=== PATIENT | male | born 1985 | race African-American/Black ===

== ENCOUNTER 2017-03-17 15:12 | Emergency (ER) | payer SELFPAY ==
[~2017-03-17] VITALS: Ht 170.2 cm; Wt 70.3 kg
[~2017-03-17 15:12] MED LIST: AMOX875T PO; BUTA1CAP29 PO; HYDR-971 PO; HYDR25SU18 RC; IBUP800T2 PO; NAPR500T8 PO; ONDA4TAB7 PO
[2017-03-17] MEDS ORDERED: IV NORMAL SALINE 1000ML BAG 1,000 ML IV SCH (17:08)
[2017-03-17 17:21] LABS: BASO # 0.1 x10^3/uL (0.0-0.2); BASO % 2 % (0-3); EOS % 8 % (0-3); HEMATOCRIT 42.1 % (39.0-53.0); HEMOGLOBIN 13.9 g/dL (13.0-17.5); LYMPH # 2.2 x10^3/uL (1.0-4.8); LYMPH % 45 % (24-48); MEAN CORPUSCULAR HEMOGLOBIN 31 pg (25-35); MEAN CORPUSCULAR HGB CONC 33 g/dL (31-37); MEAN CORPUSCULAR VOLUME 93 fL (79-100); MONO % 11 % (0-9); NEUT % 35 % (31-73); PLATELET COUNT 239 x10^3/uL (140-400); RED CELL DISTRIBUTION WIDTH 14.9 % (11.5-14.5); WHITE BLOOD COUNT 4.8 x10^3/uL (4.0-11.0)
[2017-03-17 17:25] LABS: CALCIUM 8.8 mg/dL (8.5-10.1); GFR 104.8; POTASSIUM 3.9 mmol/L (3.5-5.1)
--- NOTE | 2017-03-17 17:27 | EKG ---
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
[2017-03-17 17:42] VITALS: BP 113/73
--- NOTE | 2017-03-17 17:54 | PHYS DOC ---
Past Medical History Past Medical History: Depression, Migraines, Other Additional Past Medical Histor: abscess, HEMORRHOIDS Past Surgical History: Other Additional Past Surgical Histo: HERNIA REPAIR Additional Information: 0.5 PPD Alcohol Use: Sober Drug Use: None Adult General Chief Complaint Chief Complaint: WEAKNESS/GENERALIZED HPI HPI Patient is a 31 year old male who presents with fatigue. Patient reports for the past few days he has been having increasing fatigue, has been sleeping a lot , had body aches, and then started feeling dizzy today. No fever. No focal pain. He called into work today and was told that since he has missed multiple days he needed to see a doctor to get a work note. He has not taken anything for symptoms at home. Review of Systems Review of Systems Constitutional: Fatigue, increased sleep. Denies fever or chills Eyes: Denies change in visual acuity or eye pain HENT: Denies nasal congestion or sore throat Respiratory: Denies cough or shortness of breath Cardiovascular: Denies chest pain GI: Denies abdominal pain, nausea, vomiting, bloody stools or diarrhea : Denies dysuria or hematuria Musculoskeletal: General body aches Integument: Denies rash or skin lesions Neurologic: Dizzy. Denies headache, focal weakness or sensory changes Current Medications Current Medications Current Medications Medications (Trade) Dose Ordered Sig/Bebeto Start Time Stop Time Status Last Admin Dose Admin Sodium Chloride (Iv Sodium Chloride 0.9% 1000ml Bag) 1,000 ml @ 1,000 mls/hr Q1H 03/17/17 17:08 03/17/17 18:07 DC 03/17/17 17:14 1,000 MLS/HR Allergies Allergies Allergies Coded Allergies Type Severity Reaction Last Updated Verified No Known Medication Allergies Allergy Unknown 10/13/15 Yes Physical Exam Physical Exam Constitutional: Well developed, well nourished, no acute distress, non-toxic appearance HENT: Normocephalic, atraumatic, bilateral external ears normal Eyes: PERRL, EOMI, conjunctiva normal, no discharge Neck: Normal range of motion, no stridor Cardiovascular: Heart rate normal, regular rhythm, no murmur Lungs & Thorax: Bilateral breath sounds clear to auscultation Abdomen: Bowel sounds normal, soft, non-distended, no TTP Skin: Warm, dry, no erythema, no rash Extremities: No obvious deformity, no edema Neurologic: Alert and oriented X 3, GCS 15, strength and sensation to light touch intact and symmetrical throughout, no dystaxia noted Current Patient Data Vital Signs Vital Signs Date Time Temp Pulse Resp B/P Pulse Ox O2 Delivery O2 Flow Rate FiO2 03/17/17 17:42 76 21 113/73 100 Room Air 03/17/17 16:44 98.2 98.2 Lab Values Laboratory Tests Test 03/17/17 16:53 White Blood Count 4.8x10^3/uL (4.0-11.0) Red Blood Count 4.50x10^6/uL (4.30-5.70) Hemoglobin 13.9g/dL (13.0-17.5) Hematocrit 42.1% (39.0-53.0) Mean Corpuscular Volume 93fL (79-100) Mean Corpuscular Hemoglobin 31pg (25-35) Mean Corpuscular Hemoglobin Concent 33g/dL (31-37) Red Cell Distribution Width 14.9% (11.5-14.5) H Platelet Count 239x10^3/uL (140-400) Neutrophils (%) (Auto) 35% (31-73) Lymphocytes (%) (Auto) 45% (24-48) Monocytes (%) (Auto) 11% (0-9) H Eosinophils (%) (Auto) 8% (0-3) H Basophils (%) (Auto) 2% (0-3) Neutrophils # (Auto) 1.7x10^3uL (1.8-7.7) L Lymphocytes # (Auto) 2.2x10^3/uL (1.0-4.8) Monocytes # (Auto) 0.5x10^3/uL (0.0-1.1) Eosinophils # (Auto) 0.4x10^3/uL (0.0-0.7) Basophils # (Auto) 0.1x10^3/uL (0.0-0.2) Sodium Level 143mmol/L (136-145) Potassium Level 3.9mmol/L (3.5-5.1) Chloride Level 107mmol/L (98-107) Carbon Dioxide Level 27mmol/L (21-32) Anion Gap 9 (6-14) Blood Urea Nitrogen 13mg/dL (8-26) Creatinine 1.0mg/dL (0.7-1.3) Estimated GFR (Cockcroft-Gault) 104.8 Glucose Level 66mg/dL (70-99) L Calcium Level 8.8mg/dL (8.5-10.1) Thyroid Stimulating Hormone (TSH) 0.318uIU/mL (0.358-3.74) L Laboratory Tests 03/17/17 16:53 Laboratory Tests 03/17/17 16:53 EKG EKG EKG (my read): sinus rhythm, rate 70, normal axis, intervals wnl, TWI lead III, nonspecific ST changes, similar morphology to prior 04/27/14 Radiology/Procedures Radiology/Procedures CXR (my read): No acute abnormality Course & Med Decision Making Course & Med Decision Making Pertinent Labs and Imaging studies reviewed. (See chart for details) Patient is 31 year old male who presents with fatigue. Possible viral illness given c/o body aches. Will check labs, EKG, CXR to evaluate. IVF bolus ordered. Labs notable for glucose 66, minimally low TSH. Juice provided to patient for mild hypoglycemia; as he does not taken any diabetic medication I have little concern about this. TSH slightly low, do not believe this is related to patient' s current complaints. Discussed results with patient, who is feeling better at this time. I discussed the need for him to follow up with PCP for further evaluation. Discharged home with instructions for follow up, return precautions. Dragon Disclaimer Dragon Disclaimer This electronic medical record was generated, in whole or in part, using a voice recognition dictation system. Departure Departure Impression: Primary Impression: Fatigue Additional Impression: Dizziness Disposition: 01 HOME, SELF-CARE Condition: IMPROVED Referrals: NO PCP (PCP) Patient Instructions: Dizziness, Fatigue Additional Instructions: Thank you for allowing us to provide care today in the Emergency Department. Schedule a follow up appointment with a primary care doctor using the provided list. Return promptly to the Emergency Department if you develop any new or concerning symptoms. Problem Qualifiers HIMANSHU YAN MD Mar 17, 2017 17:54
--- NOTE | 2017-03-18 06:16 | EKG ---
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
--- NOTE | 2017-03-18 08:39 | RAD ---
Chest, 2 views, 03/17/2017: History: Chest pain, fatigue The heart size and pulmonary vascularity are normal. No pulmonary infiltrates are seen. There is no evidence of pleural fluid. IMPRESSION: No significant cardiopulmonary abnormality is detected.
== END 2017-03-17 18:08 | disposition home or self-care (01) ==
LOC: ER 15:12
DX: R53.83 Other fatigue (principal); R42 Dizziness and giddiness; F17.200 Nicotine dependence, unspecified, uncomplicated; F32.9 Major depressive disorder, single episode, unspecified
CPT/HCPCS: 36415; 71020; 80048; 84443; 85027; 93005; 99285; J7030

== ENCOUNTER 2020-10-04 18:41 | Emergency (ER) | payer SELFPAY ==
[~2020-10-04] VITALS: Ht 167.6 cm; Wt 70.1 kg
[~2020-10-04 18:41] MED LIST changes: +HYDR-3164 PO; -HYDR-971 PO; +IBUP800T19 PO; -IBUP800T2 PO
[2020-10-04 19:39] VITALS: BP 128/81
--- NOTE | 2020-10-04 20:51 | PHYS DOC ---
Past Medical History Past Medical History: Depression, Migraines, Other Additional Past Medical Histor: abscess, HEMORRHOIDS Past Surgical History: Other Additional Past Surgical Histo: HERNIA REPAIR Smoking Status: Current Every Day Smoker Alcohol Use: Sober Drug Use: None General Adult EDM: Chief Complaint: COUGH HPI: HPI: Patient is a 35 year old male who presented to ER for 3-day history of nonproductive cough body ache congestion flulike symptom. Patient said he works for [employer] and many people over the tested positive for COVID-19. Patient said he had a negative test for COVID-19 4 weeks ago after his mom was tested positive for COVID-19. Patient refused to have COVID-19 test again. Patient denies abdominal pain, no chest pain, no trouble breathing, no headache. Review of Systems: Review of Systems: Constitutional: Denies fever or chills. [] Eyes: Denies change in visual acuity. [] HENT: Positive for nasal congestion, no sore throat.] Respiratory: Positive for cough, no trouble breathing. Cardiovascular: Denies chest pain or edema. [] GI: Denies abdominal pain, nausea, vomiting, bloody stools or diarrhea. [] : Denies dysuria. [] Musculoskeletal: Positive for body aches or joint pain. No back pain. Integument: Denies rash. [] Neurologic: Denies headache, focal weakness or sensory changes. [] Endocrine: Denies polyuria or polydipsia. [] Lymphatic: Denies swollen glands. [] Psychiatric: Denies depression or anxiety. [] Heart Score: Risk Factors: Risk Factors: DM, Current or recent (<one month) smoker, HTN, HLP, family history of CAD, obesity. Risk Scores: Score 0 - 3: 2.5% MACE over next 6 weeks - Discharge Home Score 4 - 6: 20.3% MACE over next 6 weeks - Admit for Clinical Observation Score 7 - 10: 72.7% MACE over next 6 weeks - Early Invasive Strategies Allergies: Allergies: Allergies Coded Allergies Type Severity Reaction Last Updated Verified No Known Medication Allergies Allergy Unknown 10/13/15 Yes Physical Exam: PE: Constitutional: Well developed, well nourished, no acute distress, non-toxic appearance. [] HENT: Normocephalic, atraumatic, bilateral external ears normal, oropharynx moist, no oral exudates, nose normal. [] Eyes: PERRLA, EOMI, conjunctiva normal, no discharge. [] Neck: Normal range of motion, no tenderness, supple, no stridor. [] Cardiovascular:Heart rate regular rhythm, no murmur [] Lungs & Thorax: Bilateral breath sounds clear to auscultation [] Abdomen: Bowel sounds normal, soft, no tenderness, no masses, no pulsatile masses. [] Skin: Warm, dry, no erythema, no rash. [] Back: No tenderness, no CVA tenderness. [] Extremities: No tenderness, no cyanosis, no clubbing, ROM intact, no edema. [] Neurologic: Alert and oriented X 3, normal motor function, normal sensory function, no focal deficits noted. [] Psychologic: Affect normal, judgement normal, mood normal. [] EKG: EKG: [] Radiology/Procedures: Radiology/Procedures: [][facility] [address] [place], [place] [id number] IMAGING REPORT Signed PATIENT: LAUREEN FINE DACCOUNT: [id number] : 1985 LOCATION: ER AGE: 35 SEX: M EXAM STATUS: DEP ER ORD. PHYSICIAN: LOPEZ ADAMS DO REASON: cough, fever, chill PROCEDURE: CHEST AP ONLY EXAM: CHEST AP ONLY INDICATION: Reason: cough, fever, chill / Spl. Instructions: / History: . TECHNIQUE: Single view COMPARISON: 03/17/2017 chest x-ray FINDINGS: The heart size is normal. The great vessels appear unremarkable. There is no hilar or mediastinal mass. The lungs are clear. There is no pleural effusion or pneumothorax. There are no significant osseous abnormalities. IMPRESSION: No active cardiopulmonary disease. Electronically signed by: Davy Bull MD (10/04/2020 9:21 PM) [facility] DICTATED and SIGNED BY: DAVY BULL MD DATE: 10/04/202120 Course & Med Decision Making: Course & Med Decision Making Pertinent Labs and Imaging studies reviewed. (See chart for details) [] Dragon Disclaimer: Dragon Disclaimer: This electronic medical record was generated, in whole or in part, using a voice recognition dictation system. Departure Departure Impression: Primary Impression: Upper respiratory infection Disposition: 01 DC HOME SELF CARE/HOMELESS Condition: STABLE Referrals: NO PCP (PCP) PLEASE FOLLOW UP WITH YOUR DOCTOR NEEDED Patient Instructions: Upper Respiratory Infection, Adult Additional Instructions: Thank you for visiting our Emergency Department. We appreciate you trusting us with your care. If any additional problems come up don't hesitate to return to visit us. Please follow up with your primary care provider so they can plan additional care if needed and know about the problem that you had. If symptoms worsen come back to the Emergency Department. Any concerning symptoms that start such as chest pain, shortness of air, weakness or numbness on one side of the body, running high fevers or any other concerning symptoms return to the ER. LOEPZ ADAMS DO Oct 04, 2020 20:51
--- NOTE | 2020-10-04 21:24 | RAD ---
EXAM: CHEST AP ONLY INDICATION: Reason: cough, fever, chill / Spl. Instructions: / History: . TECHNIQUE: Single view COMPARISON: 03/17/2017 chest x-ray FINDINGS: The heart size is normal. The great vessels appear unremarkable. There is no hilar or mediastinal mass. The lungs are clear. There is no pleural effusion or pneumothorax. There are no significant osseous abnormalities. IMPRESSION: No active cardiopulmonary disease. Electronically signed by: Orestes Bull MD (10/04/2020 9:21 PM) [facility]
== END 2020-10-04 21:11 | disposition home or self-care (01) ==
LOC: ER 18:41
DX: J06.9 Acute upper respiratory infection, unspecified (principal); R05 Cough; R09.81 Nasal congestion; F32.9 Major depressive disorder, single episode, unspecified; G43.909 Migraine, unspecified, not intractable, without status migrainosus; F17.200 Nicotine dependence, unspecified, uncomplicated; Z98.890 Other specified postprocedural states
CPT/HCPCS: 71045; 99283

== ENCOUNTER 2020-12-12 20:22 | Emergency (ER) | payer BC ==
[~2020-12-12] VITALS: Ht 170.2 cm; Wt 72.0 kg
[2020-12-12 21:00] VITALS: BP 133/88
--- NOTE | 2020-12-12 21:16 | PHYS DOC ---
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 Patient denies any fever. Patient states he was at work today and was asked him to leave because of his symptoms. He appears intoxicated. He admits to using cigarettes and smoking other things and states he will not name them because he does not want to incriminate himself. He is also complaining of 10 out of 10 chronic left foot pain and would like a referral to an orthopedic doctor. Denies any injuries. He is an employee of [employer] and would like an excuse for work Review of Systems: Review of Systems: Constitutional: Denies fever or chills. [] Eyes: report itchy eyes. Denies change in visual acuity. [] HENT: Reports nasal congestion denies sore throat. [] Respiratory: Denies cough or shortness of breath. [] Cardiovascular: Denies chest pain or edema. [] GI: Denies abdominal pain, nausea, vomiting, bloody stools or diarrhea. [] : Denies dysuria. [] Musculoskeletal: Denies back pain or joint pain. [] Integument: Denies rash. [] Neurologic: Reports headache, denies focal weakness or sensory changes. [] Psychiatric: Denies depression or anxiety. [] Heart Score: Risk Factors: Risk Factors: DM, Current or recent (<one month) smoker, HTN, HLP, family history of CAD, obesity. Risk Scores: Score 0 - 3: 2.5% MACE over next 6 weeks - Discharge Home Score 4 - 6: 20.3% MACE over next 6 weeks - Admit for Clinical Observation Score 7 - 10: 72.7% MACE over next 6 weeks - Early Invasive Strategies Allergies: Allergies: Allergies Coded Allergies Type Severity Reaction Last Updated Verified No Known Medication Allergies Allergy Unknown 10/13/15 Yes Physical Exam: PE: Constitutional: Well developed, well nourished, no acute distress, non-toxic appearance. [] HENT: Normocephalic, atraumatic, bilateral external ears normal, oropharynx m oist, no oral exudates, nose normal. [] Eyes: PERRLA, EOMI, conjunctiva normal, no discharge. [] Neck: Normal range of motion, no tenderness, supple, no stridor. [] Cardiovascular:Heart rate regular rhythm, no murmur [] Lungs & Thorax: Bilateral breath sounds clear to auscultation [] Abdomen: Bowel sounds normal, soft, no tenderness, no masses, no pulsatile masses. [] Skin: Warm, dry, no erythema, no rash. [] Back: No tenderness, no CVA tenderness. [] Extremities: No tenderness, no cyanosis, no clubbing, ROM intact, no edema. [] Neurologic: Alert and oriented X 3, normal motor function, normal sensory function, no focal deficits noted. Cranial nerves II through XII intact Psychologic: Appears intoxicated Current Patient Data: Vital Signs: Vital Signs Date Time Temp Pulse Resp B/P (MAP) Pulse Ox O2 Delivery O2 Flow Rate FiO2 12/12/20 21:00 98.8 111 16 133/88 (103) 98 Room Air 98.8 EKG: EKG: [] Radiology/Procedures: Radiology/Procedures: [] Course & Med Decision Making: Course & Med Decision Making Pertinent Labs and Imaging studies reviewed. (See chart for details) This is a 35-year-old male patient well-known to this ED presenting today complaining of a headache, nasal congestion, and bilateral eye drainage, symptoms for 3 days. History of migraine headaches as well as seasonal allergies. Was discharged with [id number] remedies for his symptoms. He was also complaining of chronic left foot pain, will give him a referral to orthopedic doctor. Work note provided to him Dhruv Disclaimer: Dhruv Disclaimer: This electronic medical record was generated, in whole or in part, using a voice recognition dictation system. Departure Departure Impression: Primary Impression: Seasonal allergies Additional Impressions: Migraine headache Qualified Codes: G43.909 - Migraine, unspecified, not intractable, without status migrainosus Chronic toe pain, left foot Disposition: 01 DC HOME SELF CARE/HOMELESS Condition: STABLE Referrals: NO PCP (PCP) BONG SMITH MD follow up in one 2 weeks Patient Instructions: Allergies, Generic, Migraine Headache Additional Instructions: You were evaluated in the emergency room. Please take the prescribed medicatio ns as ordered. Follow-up with your doctor in 1 week, follow-up with orthopedic doctor in 2 weeks. Scripts Cetirizine Hcl (ZYRTEC) 10 Mg Tablet 1 TAB PO DAILY, #30 TAB 2 Refills Prov: MILADIS CHAUHAN APRN 12/12/20 Ketotifen Fumarate (ZADITOR) 5 Ml Drops 1 DROP EACHEYE BID, #5 ML 1 Refill Prov: MILADIS CHAUHAN APRN 12/12/20 MILADIS CHAUHAN APRN Dec 12, 2020 21:16
[2020-12-12] MEDS ORDERED: KETO5DRO4 EACHEYE (21:21)
[2020-12-12] MEDS ORDERED: CETI10TA74 PO (21:21)
== END 2020-12-12 21:29 | disposition home or self-care (01) ==
LOC: ER 20:22
DX: G43.909 Migraine, unspecified, not intractable, without status migrainosus (principal); G89.29 Other chronic pain; M79.675 Pain in left toe(s); F17.200 Nicotine dependence, unspecified, uncomplicated
CPT/HCPCS: 99282

== ENCOUNTER 2020-12-25 20:17 | Emergency (ER) | payer BC ==
[~2020-12-25] VITALS: Ht 170.2 cm; Wt 73.0 kg
[~2020-12-25 20:17] MED LIST changes: +CETI10TA74 PO; +KETO5DRO4 EACHEYE
[2020-12-25 20:20] VITALS: BP 133/88
[2020-12-25] MEDS ORDERED: DIPH-121 PO (20:32)
[2020-12-25] MEDS ORDERED: PRED20TA PO (20:32)
--- NOTE | 2020-12-25 20:32 | PHYS DOC ---
Past Medical History Past Medical History: Depression, Migraines, Other Additional Past Medical Histor: abscess, HEMORRHOIDS Past Surgical History: Other Additional Past Surgical Histo: HERNIA REPAIR Smoking Status: Current Every Day Smoker Alcohol Use: Sober Drug Use: None Adult General Chief Complaint Chief Complaint: INSECT BITE [facility] HPI Patient is a 35 year old male with no significant past medical history presenting emergency department complaining of new onset rash and itchiness. Patient states that few days ago was regular and since that time is noted where things were insects in his room in his bed. Has had some itching on her head is scalp and on the left torso. Also notes some itching and irritation of the right hand. Denies any fever, chills, dizziness or lightheadedness. Review of Systems Review of Systems Constitutional: Denies fever or chills [] Eyes: Denies change in visual acuity, redness, or eye pain [] HENT: Denies nasal congestion or sore throat [] Respiratory: Denies cough or shortness of breath [] Cardiovascular: No additional information not addressed in HPI [] GI: Denies abdominal pain, nausea, vomiting, bloody stools or diarrhea [] : Denies dysuria or hematuria [] Musculoskeletal: Denies back pain or joint pain [] Integument: Denies rash or skin lesions [] Neurologic: Denies headache, focal weakness or sensory changes [] Endocrine: Denies polyuria or polydipsia [] All other systems were reviewed and found to be within normal limits, except as documented in this note. Allergies Allergies Allergies Coded Allergies Type Severity Reaction Last Updated Verified No Known Medication Allergies Allergy Unknown 10/13/15 Yes Physical Exam Physical Exam Constitutional: Well developed, well nourished, no acute distress, non-toxic appearance. [] HENT: Normocephalic, atraumatic, bilateral external ears normal, oropharynx moist, no oral exudates, nose normal. [] Eyes: PERRLA, EOMI, conjunctiva normal, no discharge. [] Neck: Normal range of motion, no tenderness, supple, no stridor. [] Cardiovascular:Heart rate regular rhythm, no murmur [] Lungs & Thorax: Bilateral breath sounds clear to auscultation [] Abdomen: Bowel sounds normal, soft, no tenderness, no masses, no pulsatile masses. [] Skin: Warm, dry, no erythema, no rash. moderate erythema to forehead. L anterior abdomen and trunk iwth mild scaling rash Back: No tenderness, no CVA tenderness. [] Extremities: No tenderness, no cyanosis, no clubbing, ROM intact, no edema. [] Neurologic: Alert and oriented X 3, normal motor function, normal sensory function, no focal deficits noted. [] Psychologic: Affect normal, judgement normal, mood normal. [] EKG EKG [] Radiology/Procedures Radiology/Procedures [] Course & Med Decision Making Course & Med Decision Making Pertinent Labs and Imaging studies reviewed. (See chart for details) 35 male with a mild atopic dermatitis that appears to be on the left anterior torso and on the forehead scalp. No evidence of bug bites at this time. We will treat the patient with prednisone and Benadryl and discharged Dragon Disclaimer Dragon Disclaimer This electronic medical record was generated, in whole or in part, using a voice recognition dictation system. Departure Departure Impression: Primary Impression: Atopic dermatitis Disposition: 01 DC HOME SELF CARE/HOMELESS Condition: GOOD Referrals: NO PCP (PCP) Patient Instructions: Contact Dermatitis Additional Instructions: EMERGENCY DEPARTMENT GENERAL DISCHARGE INSTRUCTIONS Thank you for coming to [facility] Emergency Department (ED) today and trusting us with you care. We trust that you had a positive experience in our Emergency Department. If you wish to speak to the department management, you may call the Director at [phone]. YOUR FOLLOW UP INSTRUCTIONS ARE FOLLOWS: 1. Do you have a private Doctor? If you do not have a private doctor, please ask for a resource list of physicians or clinics that may be able to assist you with follow up care. 2. The Emergency Physicain has interpreted your x-rays. The X-Ray specialist will also review them. If there is a change in the findings, you will be notified in 48 hours when at all possible. 3. A lab test or culture has been done, your results will be reviewed and you will be notified if you need a change in treatment. ADDITIONAL INSTRUCTIONS AND INFORMATION: 1. Your care today has been supervised by a physician who is specially trained in emergency care. Many problems require more than one evaluation for a complete diagnosis and treatment. We recommend that you schedule your follow up appointment as recommended to ensure complete treatment of you illness or injury. If you are unable to obtain follow up care and continue to have a problem, or if your condition worsens, we recommend that you return to the ED. 2. We are not able to safely determine your condition over the phone nor are we able to give sound medical advice over the phone. For these safety reasons, if you call for medical advice we will ask you to come to the ED for further evaluation. 3. If you have any questions regarding these discharge instructions please call the ED at [phone]. SAFETY INFORMATION: In the interest of safety, wellness, and injury prevention; we encourage you to wear your sealbelt, if you smoke; quite smoking, and we encourage family to use a protective helmet for bicycling and other sporting events that present an increased risk for head injury. IF YOUR SYMPTOMS WORSEN OR NEW SYMPTOMS DEVELOP, OR YOU HAVE CONCERNS ABOUT YOUR CONDITION; OR IF YOUR CONDITION WORSENS WHILE YOU ARE WAITING FOR YOUR FOLLOW UP APPOINTMENT; EITHER CONTACT YOUR PRIMARY CARE DOCTOR, THE PHYSICIAN WHOSE NAME AND NUMBER YOU WERE GIVEN, OR RETURN TO THE ED IMMEDIATELY. Scripts Prednisone (PREDNISONE) 20 Mg Tablet 1 TAB PO DAILY, #5 TAB Prov: NEEUR BERNAL MD 12/25/20 Diphenhydramine Hcl (BENADRYL ALLERGY) 12.5 Mg/5 Ml Liquid 2.5 ML PO Q6HRS for allergy symptoms for 12 Days, #120 ML 0 Refills Prov: NEERU BERNAL MD 12/25/20 NEERU BERNAL MD Dec 25, 2020 20:32
[2020-12-25] MEDS ORDERED: DICL100G54 TP (20:59)
[2020-12-25] MEDS ORDERED: predniSONE 20 MG TABLET PO ONE (21:00)
[2020-12-25] MEDS ORDERED: HYDROCORTISONE 1% LOTION BOTTLE. TP SCH (21:00)
== END 2020-12-25 21:00 | disposition home or self-care (01) ==
LOC: ER 20:17
DX: L20.9 Atopic dermatitis, unspecified (principal); R21 Rash and other nonspecific skin eruption; F32.9 Major depressive disorder, single episode, unspecified; G43.909 Migraine, unspecified, not intractable, without status migrainosus; F17.200 Nicotine dependence, unspecified, uncomplicated; Z98.890 Other specified postprocedural states
CPT/HCPCS: 99283

== ENCOUNTER 2021-03-20 21:14 | Emergency (ER) | payer BC ==
[~2021-03-20] VITALS: Ht 170.2 cm; Wt 72.0 kg
[~2021-03-20 21:14] MED LIST changes: +DICL100G54 TP; +DIPH-121 PO; +PRED20TA PO
[2021-03-20 21:57] VITALS: BP 131/76
--- NOTE | 2021-03-20 22:24 | PHYS DOC ---
Past Medical History Past Medical History: Depression, Migraines, Other Additional Past Medical Histor: abscess, HEMORRHOIDS Past Surgical History: Other Additional Past Surgical Histo: HERNIA REPAIR Smoking Status: Current Every Day Smoker Alcohol Use: Sober Drug Use: None Adult General Chief Complaint Chief Complaint: FATIGUE HPI HPI Patient is a 35 year old male presenting emergency department requesting a Covid test for exposure. Patient states that coworker was tested positive yesterday and she was working with her yesterday. Sent home from work today due to possible Covid exposure. Denies symptoms at this time Review of Systems Review of Systems Constitutional: Denies fever or chills [] Eyes: Denies change in visual acuity, redness, or eye pain [] HENT: Denies nasal congestion or sore throat [] Respiratory: Denies cough or shortness of breath [] Cardiovascular: No additional information not addressed in HPI [] GI: Denies abdominal pain, nausea, vomiting, bloody stools or diarrhea [] : Denies dysuria or hematuria [] Musculoskeletal: Denies back pain or joint pain [] Integument: Denies rash or skin lesions [] Neurologic: Denies headache, focal weakness or sensory changes [] Endocrine: Denies polyuria or polydipsia [] All other systems were reviewed and found to be within normal limits, except as documented in this note. Allergies Allergies Allergies Coded Allergies Type Severity Reaction Last Updated Verified No Known Drug Allergies 12/25/20 No Physical Exam Physical Exam Constitutional: Well developed, well nourished, no acute distress, non-toxic appearance. [] HENT: Normocephalic, atraumatic, bilateral external ears normal, oropharynx moist, no oral exudates, nose normal. [] Eyes: PERRLA, EOMI, conjunctiva normal, no discharge. [] Neck: Normal range of motion, no tenderness, supple, no stridor. [] Cardiovascular:Heart rate regular rhythm, no murmur [] Lungs & Thorax: Bilateral breath sounds clear to auscultation [] Abdomen: Bowel sounds normal, soft, no tenderness, no masses, no pulsatile masses. [] Skin: Warm, dry, no erythema, no rash. [] Back: No tenderness, no CVA tenderness. [] Extremities: No tenderness, no cyanosis, no clubbing, ROM intact, no edema. [] Neurologic: Alert and oriented X 3, normal motor function, normal sensory function, no focal deficits noted. [] Psychologic: Affect normal, judgement normal, mood normal. [] Current Patient Data Vital Signs Vital Signs Date Time Temp Pulse Resp B/P (MAP) Pulse Ox O2 Delivery O2 Flow Rate FiO2 03/20/21 21:57 98.3 84 16 131/76 (94) 98 Room Air 98.3 EKG EKG [] Radiology/Procedures Radiology/Procedures [] Course & Med Decision Making Course & Med Decision Making Pertinent Labs and Imaging studies reviewed. (See chart for details) 35M presented emergency department for Covid testing after exposure. Will obtain Covid testing and discharged home. Dragon Disclaimer [employer] Disclaimer This electronic medical record was generated, in whole or in part, using a voice recognition dictation system. Departure Departure Impression: Primary Impression: Viral syndrome Disposition: HOME / SELF CARE / HOMELESS Condition: GOOD Referrals: GIGI WISE MD Patient Instructions: Viral Syndrome Additional Instructions: EMERGENCY DEPARTMENT GENERAL DISCHARGE INSTRUCTIONS Thank you for coming to [facility] Emergency Department (ED) today and trusting us with you care. We trust that you had a positive experience in our Emergency Department. If you wish to speak to the department management, you may call the Director at [phone]. YOUR FOLLOW UP INSTRUCTIONS ARE FOLLOWS: 1. Do you have a private Doctor? If you do not have a private doctor, please ask for a resource list of physicians or clinics that may be able to assist you with follow up care. 2. The Emergency Physicain has interpreted your x-rays. The X-Ray specialist will also review them. If there is a change in the findings, you will be notified in 48 hours when at all possible. 3. A lab test or culture has been done, your results will be reviewed and you will be notified if you need a change in treatment. ADDITIONAL INSTRUCTIONS AND INFORMATION: 1. Your care today has been supervised by a physician who is specially trained in emergency care. Many problems require more than one evaluation for a complete diagnosis and treatment. We recommend that you schedule your follow up appointment as recommended to ensure complete treatment of you illness or injury. If you are unable to obtain follow up care and continue to have a problem, or if your condition worsens, we recommend that you return to the ED. 2. We are not able to safely determine your condition over the phone nor are we able to give sound medical advice over the phone. For these safety reasons, if you call for medical advice we will ask you to come to the ED for further evaluation. 3. If you have any questions regarding these discharge instructions please call the ED at [phone]. SAFETY INFORMATION: In the interest of safety, wellness, and injury prevention; we encourage you to wear your sealbelt, if you smoke; quite smoking, and we encourage family to use a protective helmet for bicycling and other sporting events that present an increased risk for head injury. IF YOUR SYMPTOMS WORSEN OR NEW SYMPTOMS DEVELOP, OR YOU HAVE CONCERNS ABOUT YOUR CONDITION; OR IF YOUR CONDITION WORSENS WHILE YOU ARE WAITING FOR YOUR FOLLOW UP APPOINTMENT; EITHER CONTACT YOUR PRIMARY CARE DOCTOR, THE PHYSICIAN WHOSE NAME AND NUMBER YOU WERE GIVEN, OR RETURN TO THE ED IMMEDIATELY. NEERU BERNAL MD Mar 20, 2021 22:24
== END 2021-03-20 22:56 | disposition home or self-care (01) ==
LOC: ER 21:14
DX: B34.9 Viral infection, unspecified (principal); Z20.822 Contact with and (suspected) exposure to COVID-19; F32.9 Major depressive disorder, single episode, unspecified; G43.909 Migraine, unspecified, not intractable, without status migrainosus; F17.200 Nicotine dependence, unspecified, uncomplicated; Z98.890 Other specified postprocedural states
CPT/HCPCS: 99283; U0003

== ENCOUNTER 2021-04-08 19:01 | Emergency (ER) | payer BC ==
[~2021-04-08] VITALS: Ht 170.2 cm; Wt 71.4 kg
[2021-04-08 19:13] VITALS: BP 138/103
[2021-04-08] MEDS ORDERED: PRED20TA PO (19:33)
[2021-04-08] MEDS ORDERED: DIPH25CA58 PO (19:33)
[2021-04-08] MEDS ORDERED: FAMO-63 PO (19:33)
--- NOTE | 2021-04-08 19:34 | PHYS DOC ---
Past Medical History Past Medical History: Depression, Migraines, Other Additional Past Medical Histor: abscess, HEMORRHOIDS Past Surgical History: Other Additional Past Surgical Histo: HERNIA REPAIR Smoking Status: Current Every Day Smoker Alcohol Use: Heavy Additional Information: REPORTS 'TWO SHOTS A DAY AT LEAST' Drug Use: None Social History Narrative: DENIES BUT IS HESITANT TO ANSWER General Adult EDM: Chief Complaint: ITCHING HPI: HPI: 35-year-old male with past medical history of eczema presents with increased pruritic rash for the past several days. Patient reports he cleaned his house and changed bedsheets thinking it might be secondary to insect bites. Patient has also been using [id number] eczema remedies. Patient reports despite all measures patient does continue with pruritic rash. Patient reports worse when he is sweating. Patient reports this typically happens while he is at work at [employer]. Patient requesting help to prevent rash from reoccurring. Review of Systems: Review of Systems: Constitutional: Denies fever or chills Eyes: Denies redness or eye pain HENT: Denies nasal congestion or sore throat Respiratory: Denies cough or shortness of breath Cardiovascular: Denies chest pain or palpitations GI: Denies abdominal pain, nausea, or vomiting : Denies dysuria or hematuria Musculoskeletal: Denies back pain or joint pain Integument: Reports pruritic rash Neurologic: Denies headache, focal weakness or sensory changes Complete systems were reviewed and found to be within normal limits, except as documented in this note. Heart Score: C/O Chest Pain: N/A Current Medications: Current Medications Medications (Trade) Dose Ordered Sig/Bebeto Start Time Stop Time Status Last Admin Dose Admin Dexamethasone (Decadron) 10 mg 1X ONCE 04/08/21 19:30 04/08/21 19:31 UNV Diphenhydramine HCl (Benadryl) 25 mg 1X ONCE 04/08/21 19:30 04/08/21 19:31 UNV Famotidine (Pepcid) 20 mg 1X ONCE 04/08/21 19:30 04/08/21 19:31 UNV Allergies: Allergies: Allergies Coded Allergies Type Severity Reaction Last Updated Verified No Known Drug Allergies 12/25/20 No Physical Exam: PE: Constitutional: Well developed, well nourished, no acute distress, non-toxic appearance HENT: Normocephalic, atraumatic Eyes: Conjunctiva normal, no discharge Neck: Normal range of motion, supple Lungs & Thorax: No respiratory distress, equal chest rise and fall Skin: Warm, dry, no erythema, mild pruritic rash to bilateral arms and to neck which appears consistent to eczema Extremities: No tenderness, ROM intact, no edema Neurologic: Alert and oriented X 3, no focal deficits noted Psychologic: Affect anxious, judgment normal Current Patient Data: Vital Signs: Vital Signs Date Time Temp Pulse Resp B/P (MAP) Pulse Ox O2 Delivery O2 Flow Rate FiO2 04/08/21 19:13 98.4 116 16 138/103 (115) 100 Room Air 98.4 EKG: EKG: [] Radiology/Procedures: Radiology/Procedures: [] Course & Med Decision Making: Course & Med Decision Making Patient presents with HPI and physical exam consistent for pruritic rash likely patient's exacerbation of eczema. Symptomatic treatment provided with oral steroid, Benadryl, and Pepcid. Patient stable for discharge with outpatient follow-up with PCP. Discussed findings and plan with patient, who acknowledges understanding and agreement. Dhruv Disclaimer: Dh[employer]v Disclaimer: This electronic medical record was generated, in whole or in part, using a voice recognition dictation system. Departure Departure Impression: Primary Impression: Pruritic rash Additional Impression: Eczema Qualified Codes: L30.9 - Dermatitis, unspecified Disposition: HOME / SELF CARE / HOMELESS Condition: STABLE Referrals: NO PCP (PCP) Patient Instructions: Eczema, Rash, Tode-py-Tkas Scripts Famotidine (PEPCID) 20 Mg Tablet 20 MG PO BID for 5 Days, #10 TAB Prov: KIT SARABIA DO 04/08/21 Diphenhydramine Hcl (BENADRYL) 25 Mg Capsule 1 CAP PO Q6HRS PRN for ITCHING, #30 CAP 0 Refills Prov: KIT SARABIA DO 04/08/21 Prednisone (PREDNISONE) 20 Mg Tablet 2 TAB PO DAILY, #8 TAB Start this prescription tomorrow, Saturday04/09/21 Prov: KIT SARABIA DO 04/08/21 KIT SARABIA DO April 08, 2021 19:34
[2021-04-08] MEDS ORDERED: FAMOTIDINE 20 MG TABLET. PO ONE (19:45)
[2021-04-08] MEDS ORDERED: diphenhydrAMINE HCL 25 MG CAPSULE PO ONE (19:45)
[2021-04-08] MEDS ORDERED: DEXAMETHASONE 4 MG TABLET PO ONE (19:45)
== END 2021-04-08 19:46 | disposition home or self-care (01) ==
LOC: ER 19:01
DX: L29.9 Pruritus, unspecified (principal); R21 Rash and other nonspecific skin eruption; L30.9 Dermatitis, unspecified; G43.909 Migraine, unspecified, not intractable, without status migrainosus; F32.9 Major depressive disorder, single episode, unspecified; F17.200 Nicotine dependence, unspecified, uncomplicated; F10.20 Alcohol dependence, uncomplicated; Y90.9 Presence of alcohol in blood, level not specified
CPT/HCPCS: 99284; Q0163

== ENCOUNTER 2021-05-09 07:40 | Emergency (ER) | payer BC ==
[~2021-05-09] VITALS: Ht 170.2 cm; Wt 70.0 kg
[~2021-05-09 07:40] MED LIST changes: +DIPH25CA58 PO; +FAMO-63 PO
[2021-05-09 08:00] VITALS: BP 136/99
[2021-05-09] MEDS ORDERED: diphenhydrAMINE 50 MG/ML VIAL IM ONE (08:15)
[2021-05-09] MEDS ORDERED: CETI10TA16 PO (08:43)
[2021-05-09] MEDS ORDERED: TRIA15OI9 TP (08:43)
--- NOTE | 2021-05-09 08:44 | ED.ADGEN ---
Past Medical History Past Medical History: Depression, Migraines, Other Additional Past Medical Histor: abscess, HEMORRHOIDS Past Surgical History: Other Additional Past Surgical Histo: HERNIA REPAIR Smoking Status: Current Every Day Smoker Alcohol Use: Heavy Drug Use: None General Adult EDM: Chief Complaint: SKIN RASH/ABSCESS HPI: HPI: Patient is a 35 year old male coming in for pruritic rash on face and forearms. States it started around his cheeks just below his eyes 2 days ago, yesterday started on his volar forearms. Patient denies any other complaints or known exposure. His not had any changes in detergent or soaps. 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 Has had multiple episodes in the past. Took Benadryl a few days ago but does not take any antihistamines regularly. Patient states he has a history of seasonal allergies. Review of Systems: Review of Systems: All other systems within normal limits except for as noted in the HPI Current Medications: Current Medications Medications (Trade) Dose Ordered Sig/Bebeto Start Time Stop Time Status Last Admin Dose Admin Diphenhydramine HCl (Benadryl) 50 mg 1X ONCE 05/09/21 08:15 05/09/21 08:16 DC 05/09/21 08:32 50 MG Allergies: Allergies: Allergies Coded Allergies Type Severity Reaction Last Updated Verified No Known Drug Allergies 12/25/20 No Physical Exam: PE: Constitutional: Well developed, well nourished, no acute distress, non-toxic appearance. [] HENT: Normocephalic, atraumatic, bilateral external ears normal, nose normal. [] Eyes: PERRLA, conjunctiva normal, no discharge. [] Neck: No rigidity, supple, no stridor. [] Cardiovascular: Regular rate and rhythm, brisk cap refill [] Lungs & Thorax: Non labored symmetric respirations, no tachypnea or respiratory distress [] Abdomen: Soft, nondistended. Skin: Warm, dry, no erythema, no rash. Raised papules on inner forearm and on cheeks [] Back: Unremarkable Extremities: No deformities, range of motion grossly intact, no lower extremity edema [] Neurologic: Alert and oriented X 3, no focal deficits noted. [] Psychologic: Affect normal, judgement normal, mood normal. [] EKG: EKG: [] Heart Score: C/O Chest Pain: No Risk Factors: Risk Factors: DM, Current or recent (<one month) smoker, HTN, HLP, family hi story of CAD, obesity. Risk Scores: Score 0 - 3: 2.5% MACE over next 6 weeks - Discharge Home Score 4 - 6: 20.3% MACE over next 6 weeks - Admit for Clinical Observation Score 7 - 10: 72.7% MACE over next 6 weeks - Early Invasive Strategies Radiology/Procedures: Radiology/Procedures: [] Course & Med Decision Making: Course & Med Decision Making Patient appears to have contact dermatitis. Patient states that he is getting his second dose of Covid vaccine later today so we will treat with topical steroids instead of p.o. Dragon Disclaimer: [employer] Disclaimer: This electronic medical record was generated, in whole or in part, using a voice recognition dictation system. Departure Departure Impression: Primary Impression: Dermatitis Disposition: HOME / SELF CARE / HOMELESS Condition: STABLE Referrals: NO PCP (PCP) Patient Instructions: Contact Dermatitis Scripts Triamcinolone Acetonide (TRIAMCINOLONE ACETONIDE 0.5% OINT) 15 Gm Oint...g. 1 BOLA TP BID for steroid for 10 Days, #60 GM Prov: VICTORINO VIRAMONTES MD 05/09/21 Cetirizine Hcl (CETIRIZINE HCL) 10 Mg Tablet 1 TAB PO DAILY for antihistamine, #30 TAB 3 Refills Prov: VICTORINO VIRAMONTES MD 05/09/21 VICTORINO VIRAMONTES MD May 09, 2021 08:44
== END 2021-05-09 08:56 | disposition home or self-care (01) ==
LOC: ER 07:40
DX: L30.9 Dermatitis, unspecified (principal); G43.909 Migraine, unspecified, not intractable, without status migrainosus; F17.200 Nicotine dependence, unspecified, uncomplicated; F10.20 Alcohol dependence, uncomplicated; Y90.9 Presence of alcohol in blood, level not specified
CPT/HCPCS: 99283; J1200; 96372

== ENCOUNTER 2021-05-17 11:39 | Emergency (ER) | payer BC ==
[~2021-05-17] VITALS: Ht 167.6 cm; Wt 70.0 kg
[~2021-05-17 11:39] MED LIST changes: +CETI10TA16 PO; +TRIA15OI9 TP
[2021-05-17] MEDS ORDERED: cefTRIAXone IM 500 MG VIAL. IM ONE (12:15)
[2021-05-17 12:24] LABS: BILIRUBIN,URINE SMALL (NEG); CLARITY,URINE CLOUDY; COLOR,URINE AMBER; NITRITE,URINE NEGATIVE (NEG); PH,URINE 5.5 (<5.0-8.0); PROTEIN,URINE 30 mg/dL (NEG-TRACE)
[2021-05-17 12:36] LABS: WBC,URINE TNTC /HPF (0-4)
[2021-05-17 12:37] LABS: BACTERIA,URINE MODERATE /HPF (0-FEW); RBC,URINE FIELD OBSCURED /HPF (0-2)
[2021-05-17] MEDS ORDERED: DOXY-181 PO (13:24)
--- NOTE | 2021-05-17 13:24 | ED.ADGEN ---
Past Medical History Past Medical History: Depression, Migraines, STD, Other Additional Past Medical Histor: abscess, HEMORRHOIDS Past Surgical History: Other Additional Past Surgical Histo: HERNIA REPAIR Smoking Status: Current Every Day Smoker Alcohol Use: Heavy Drug Use: None General Adult EDM: Chief Complaint: SEXUALLY TRANSMITTED DISEASE HPI: HPI: Patient is a 35 year old AA male who presents to the emergency department with complaints of pain with urination and abnormal penile discharge that began today. Patient denies any abdominal pain, nausea, vomiting, diarrhea, hematuria, back pain, increased urinary frequency, or difficulty voiding. Patient states he thinks he has a sexually transmitted infection. He currently denies any fever, cough, rash, or abdominal pain. He currently denies any pain. Review of Systems: Review of Systems: Complete ROS is negative unless otherwise noted in HPI. Current Medications: Current Medications Medications (Trade) Dose Ordered Sig/Bebeto Start Time Stop Time Status Last Admin Dose Admin Ceftriaxone Sodium (Rocephin Im) 500 mg 1X ONCE 05/17/21 12:15 05/17/21 12:16 DC 05/17/21 12:31 500 MG Allergies: Allergies: Allergies Coded Allergies Type Severity Reaction Last Updated Verified No Known Drug Allergies 12/25/20 No Physical Exam: PE: See Above Constitutional: Well developed, well nourished, no acute distress, non-toxic appearance. [] HENT: Normocephalic, atraumatic, bilateral external ears normal, nose normal. [] Eyes: PERRLA, EOMI, conjunctiva normal, no discharge. [] Neck: Normal range of motion, no stridor. [] Cardiovascular:Heart rate regular rhythm Lungs & Thorax: Respirations even and unlabored, no retractions, no respiratory distress Abdomen: soft, no tenderness Skin: Warm, dry, no erythema, no rash. [] Extremities: No cyanosis, ROM intact, no edema. [] Neurologic: Alert and oriented X 3, no focal deficits noted. [] Psychologic: Affect normal, judgement normal, mood normal. [] Current Patient Data: Labs: Laboratory Tests Test 05/17/21 12:15 Urine Collection Type Unknown Urine Color M[place]i Urine Clarity Cloudy Urine pH 5.5 (<5.0-8.0) Urine Specific [place] >=1.030 (1.000-1.030) Urine Protein 30 mg/dL (NEG-TRACE) Urine Glucose (UA) Negative mg/dL (NEG) Urine Ketones (Stick) Trace mg/dL (NEG) Urine Blood Small (NEG) Urine Nitrite Negative (NEG) Urine Bilirubin Small (NEG) Urine Urobilinogen Dipstick 1.0 mg/dL (0.2 mg/dL) Urine Leukocyte Esterase Large (NEG) Urine RBC Field obscured /HPF (0-2) Urine WBC Tntc /HPF (0-4) Urine Bacteria Moderate /HPF (0-FEW) Urine Mucus Mod /LPF Urine Chlamydia DNA (PCR) Negative (Negative) Neisseria gonorrhoeae DNA (PCR) Positive (Negative) A Microbiology 05/17/21 Urine Culture - Final, Complete Vital Signs: Vital Signs Date Time Temp Pulse Resp B/P (MAP) Pulse Ox O2 Delivery O2 Flow Rate FiO2 05/17/21 13:35 111 20 167/92 (117) 97 Room Air 05/17/21 11:46 98.5 98.5 EKG: EKG: [] Heart Score: C/O Chest Pain: No Risk Scores: Score 0 - 3: 2.5% MACE over next 6 weeks - Discharge Home Score 4 - 6: 20.3% MACE over next 6 weeks - Admit for Clinical Observation Score 7 - 10: 72.7% MACE over next 6 weeks - Early Invasive Strategies Radiology/Procedures: Radiology/Procedures: [] Course & Med Decision Making: Course & Med Decision Making Pertinent Labs and Imaging studies reviewed. (See chart for details) Patient was treated prophylactically with 500 mg of IM Rocephin, and given a prescription for doxycycline. Patient was instructed to avoid having intercourse until the results of gonorrhea and chlamydia testing are available, patient was notified that these results would not be available for 48 hours. If one or both of these tests is positive, patient needs to refrain from intercourse for approximately 1 week following the treatment of any current partners. [] [] Patients Care and treatment plan provided by ER Nurse Practitioner. I was available for consult. Patient's chart reviewed. Dhruv Disclaimer: [employer] Disclaimer: This electronic medical record was generated, in whole or in part, using a voice recognition dictation system. Departure Departure Impression: Primary Impression: Contact with and (suspected) exposure to infections with a predominantly sexual mode of transmission Disposition: HOME / SELF CARE / HOMELESS Condition: STABLE Referrals: NO PCP (PCP) Patient Instructions: Sexually Transmitted Disease, [id number] Additional Instructions: Fill the prescription and take as directed. Recommend that you go to your local health department for comprehensive sexually transmitted disease testing. You have been treated for a suspected gonorrhea and chlamydia. Avoid having int ercourse until the results of gonorrhea and chlamydia testing are available, these results will not be available for 48 hours. If one or both of these tests is positive, you need to refrain from intercourse for approximately 1 week following the treatment of any current partners. Follow-up with your primary care doctor if symptoms persist, return to ER symptoms worsen. Scripts Doxycycline Monohydrate (DOXYCYCLINE MONOHYDRATE) 100 Mg Capsule 1 CAP PO BID for 7 Days, #14 CAP 0 Refills Prov: MAN ROCK APRN 05/17/21 MAN ROCK APRN May 17, 2021 13:24 REINA SPEAR DO May 21, 2021 18:25
[2021-05-17 13:35] VITALS: BP 167/92
== END 2021-05-17 13:35 | disposition home or self-care (01) ==
LOC: ER 11:39
DX: R30.0 Dysuria (principal); Z20.2 Contact with and (suspected) exposure to infections with a predominantly sexual mode of transmission; R36.9 Urethral discharge, unspecified; G43.909 Migraine, unspecified, not intractable, without status migrainosus; F17.200 Nicotine dependence, unspecified, uncomplicated
CPT/HCPCS: 81001; 87086; 87491; 87591; 96372; 99283; J0696

== ENCOUNTER 2021-07-15 00:25 | Emergency (ER) | payer SELFPAY ==
[~2021-07-15 00:25] MED LIST changes: +DOXY-181 PO
== END 2021-07-15 01:00 | disposition left against medical advice (07) ==
LOC: ER 00:25
DX: R10.9 Unspecified abdominal pain (principal); R11.2 Nausea with vomiting, unspecified; Z53.21 Procedure and treatment not carried out due to patient leaving prior to being seen by health care provider